=== PATIENT | female | born 1935 | race Caucasian/White ===

== ENCOUNTER 2022-06-01 20:15 | Inpatient (IN) | payer OTHER ==
[~2022-06-01] VITALS: Ht 162.6 cm; Wt 73.5 kg
[2022-06-01 20:31] VITALS: BP 108/67
--- NOTE | 2022-06-01 20:32 | NUR ---
PT BIBA BLS ER BED 12
--- NOTE | 2022-06-01 20:40 | NUR ---
BIBA FROM [facility] WITH C/O NOT EATING IN 3 DAYS DUE TO PAIN IN MOUTH. PT WAS SUPPOSED TO HAVE A BIOPSY DONE AT [facility] BUT HOSPITAL IS WAITING ON SPECIALIST. TIANAU NOTED TO HAVE WHITE SPOTS AND SMALL LACERATIONS. PT KEEPS MOUTH OPEN AND MOANS OCCASIONALLY PMH: DEMENTIA, CHF, COPD, CKD, DM, RESPIRATORY FAILURE
[2022-06-01] MEDS ORDERED: KETOROLAC 15 MG/ML VIAL IVP ONE (23:40)
[2022-06-01] MEDS ORDERED: NACL 0.9% 1,000 ML IV ONE (23:40)
[2022-06-02 00:41] LABS: BASOPHILS % (AUTO) 0.3 % (0.0-2.0); EOSINOPHILS % (AUTO) 0.1 % (0.0-4.0); HEMATOCRIT 44.8 % (36-48); HEMOGLOBIN 14.5 g/dL (12.0-16.0); LYMPHOCYTES # (AUTO) 1.2 K/uL (2.5-16.5); LYMPHOCYTES % (AUTO) 10.4 % (20.5-51.1); MEAN CORPUSCULAR HEMOGLOBIN 29 pg (27-31); MEAN CORPUSCULAR HGB CONC 32 g/dL (33-37); MEAN CORPUSCULAR VOLUME 88.5 fL (80-94); MONOCYTES # (AUTO) 0.6 K/uL (0.8-1.0); MONOCYTES % (AUTO) 5.7 % (1.7-9.3); NEUTROPHILS # (AUTO) 9.4 K/uL (1.8-7.7); NEUTROPHILS % (AUTO) 83.5 % (42.2-75.2); PLATELET COUNT (AUTO) 126 K/uL (140-450); RED BLOOD CELL COUNT(AUTO) 5.06 MIL/uL (4.20-5.40); RED CELL DISTRIBUTION WIDTH 18.4 % (11.6-13.7); WHITE BLOOD COUNT (AUTO) 11.2 K/uL (4.8-10.8)
[2022-06-02 01:14] LABS: ALBUMIN 3.6 g/dL (3.4-5.0); ANION GAP 13.5 (8-16); ASPARTATE AMINOTRANSFERASE 19 U/L (15-37); CHLORIDE 105 mmol/L (98-107); CREATININE 1.4 mg/dL (0.6-1.3); GLUCOSE 114 mg/dL (74-106); SODIUM SERUM 150 mmol/L (136-145); TOTAL BILIRUBIN 0.8 mg/dL (0.0-1.0); UREA NITROGEN, BLOOD 27 mg/dL (7-18)
[2022-06-02 01:19] LABS: POTASSIUM 2.5 mmol/L (3.5-5.1)
[2022-06-02] MEDS ORDERED: POTASSIUM CHL 40 MEQ/ D5-1/2NS 1,000 ML IV ONE (01:20)
--- NOTE | 2022-06-02 02:08 | NUR ---
DOLORES WALKED TO LAB
[2022-06-02] MEDS ORDERED: MORPHINE SULFATE 4 MG/ML SYR IVP ONE (03:55)
[2022-06-02] MEDS ORDERED: ONDANSETRON 4 MG/2 ML VIAL IVP ONE (03:55)
[2022-06-02] MEDS ORDERED: MORPHINE SULFATE 4 MG/ML SYR ONE (03:56)
--- NOTE | 2022-06-02 04:44 | NUR ---
IS MOANING AND CALLING OUT "HELP ME". MEDICATED FOR PAIN ORDERED
--- NOTE | 2022-06-02 06:00 | NUR ---
POSITIONED FOR COMFORT
[2022-06-02] MEDS ORDERED: ACETAMINOPHEN 325 MG TAB PO PRN (08:35)
[2022-06-02] MEDS ORDERED: POTASSIUM CHLORIDE 10 MEQ TABER PO PRN (08:35)
[2022-06-02] MEDS ORDERED: guaiFENesin DM 200/20 MG-10 ML 10 ML UDC PO PRN (08:35)
[2022-06-02] MEDS ORDERED: DOCUSATE SODIUM 100 MG GELCAP PO PRN (08:35)
[2022-06-02] MEDS ORDERED: ONDANSETRON 4 MG/2 ML VIAL IM/IVP PRN (08:35)
[2022-06-02 09:02] LABS: BASOPHILS % (AUTO) 0.5 % (0.0-2.0); EOSINOPHILS % (AUTO) 0.2 % (0.0-4.0); HEMATOCRIT 44.4 % (36-48); HEMOGLOBIN 14.5 g/dL (12.0-16.0); LYMPHOCYTES # (AUTO) 1.1 K/uL (2.5-16.5); LYMPHOCYTES % (AUTO) 12.1 % (20.5-51.1); MEAN CORPUSCULAR HEMOGLOBIN 29 pg (27-31); MEAN CORPUSCULAR HGB CONC 33 g/dL (33-37); MEAN CORPUSCULAR VOLUME 88.4 fL (80-94); MONOCYTES # (AUTO) 0.5 K/uL (0.8-1.0); MONOCYTES % (AUTO) 5.5 % (1.7-9.3); NEUTROPHILS # (AUTO) 7.2 K/uL (1.8-7.7); NEUTROPHILS % (AUTO) 81.7 % (42.2-75.2); PLATELET COUNT (AUTO) 113 K/uL (140-450); RED BLOOD CELL COUNT(AUTO) 5.03 MIL/uL (4.20-5.40); RED CELL DISTRIBUTION WIDTH 17.9 % (11.6-13.7); WHITE BLOOD COUNT (AUTO) 8.8 K/uL (4.8-10.8)
--- NOTE | 2022-06-02 09:02 | NUR ---
XRAY AT BEDSIDE. ATTEMPTED TO FEED PATIENT , HAVING DIFFCULTY WITH CHEWING.
[2022-06-02 09:06] LABS: CARBON DIOXIDE 35.9 mmol/L (21-32); CHLORIDE 106 mmol/L (98-107); CREATININE 1.4 mg/dL (0.6-1.3); GLUCOSE 126 mg/dL (74-106); SODIUM SERUM 136 mmol/L (136-145); UREA NITROGEN, BLOOD 27 mg/dL (7-18)
[2022-06-02 09:12] LABS: POTASSIUM 2.3 mmol/L (3.5-5.1)
--- NOTE | 2022-06-02 09:17 | NUR ---
86YR OLD FEMALE C/O MOUTH PAIN. PT IS FROM [place]. HX OF TONGUE CA. PT IS INCONT. PT A&OX1. 22G R AC. MOUTH HAS DRY OLD BLEED . SWELLING TO THE TONGUE. PT IS UNABLE TO CHEW ANY FOOD. [facility] SOFT DIET HAS BEEN ORDER. NO RESP DISTRESS NOTED. PT ON BEDSIDE MONITOR. HOB ELEVATED. BED AT LOWEST POSITION. SIDE RAILS UP X2. UNKNOWN OF ALLERGIES POOR HISTORIAN HX OF TONGUE CA
[2022-06-02 09:22] LABS: PROTHROMBIN TIME 12.1 secs (10.8-13.4)
[2022-06-02 09:26] LABS: CHOL/HDL RATIO 3.9 (1-4.5); FREE T4 (FREE THYROXINE) 1.16 ng/dL (0.76-1.46); MAGNESIUM 2.4 mg/dL (1.8-2.4); PHOSPHORUS 1.9 mg/dL (2.5-4.9); THYROID STIMULATING HORMONE 4.12 uIU/mL (0.34-3.74)
--- NOTE | 2022-06-02 09:29 | NUR ---
K+ OF 2.3. DR CULP NOTIFED
--- NOTE | 2022-06-02 09:30 | NUR ---
NEW IV CATH PLACED IN L AC 20
[2022-06-02] MEDS: PANTOPRAZOLE 40 MG TABEC PO SCH (09:55)
--- NOTE | 2022-06-02 10:00 | NUR ---
DR CULP NOTIFED OF K+ 2.3. GAVE A ORDER K RIDER 80meq
--- NOTE | 2022-06-02 10:04 | NUR ---
PATIENT HAS BEEN SCREENED AND CATEGORIZED HIGH NUTRITION RISK. PATIENT WILL BE SEEN WITHIN 1-2 DAYS OF ADMISSION. / UBALDO MERA RD
--- NOTE | 2022-06-02 10:50 | NUR ---
RESP EVEN AND UNLABORED. PT RESTING IN BED. H0B ELEVATED. PENDING BED AVAIL /STATUS. NO CHANGE IN PATIENTS CONDITION
[2022-06-02] MEDS ORDERED: POTASSIUM CHLORIDE 40 MEQ, LIDOCAINE MPF 1% 25 MG in NACL 0.9% 250 ML IV SCH ×2 (11:00→16:00)
[2022-06-02] MEDS: DEXT 5% /NACL 0.9% 1,000 ML IV SCH ×3 (11:13→22:32)
--- NOTE | 2022-06-02 11:57 | NUR ---
[facility] SOFT DIET CHANGED TO PURREED THIN LIQUIDS PER DR CULP
--- NOTE | 2022-06-02 13:23 | NUR ---
RECEIVE ENDORSEMENT FROM ER NURSE THAT PATIENT COME FROM [facility] FOR WEAKNESS, MOUTH PAIN D/T HX OF TONGUE CANCER. PATIENT HAS REFUSE EATING IN THE PAST FEW DAYS. CURRENT DIAGNOSIS IS HYPOKALEMIA, DEHYDRATION W/ HX OF HTN, DM II. PATIENT IS FULL CODE W/ NKA, BED REST. ALERT X 1, ON ROOM AIR, PUREE DIET; ON D5 1/2 NS 40KCL INFUSING AT 100 AND 40KCL @68ML/HR VIA L. AC 20G. R. FOREARM 22G SALINE LOCK. WILL CONTINUE TO MONITOR.
[2022-06-02 16:00] VITALS: BP 121/66
--- NOTE | 2022-06-02 19:54 | NUR ---
ENDORSE PATIENT TO PM SHIFT NURSE THAT PATIENT REST IN BED; PIV D5NS INFUSING AT 120ML/HR, K RIDER @68ML/HR VIA LAC. R.FOREARM 22 SALINE LOCK.
[2022-06-02 20:00] VITALS: BP 130/79
[2022-06-02 21:26] LABS: ANION GAP 8.7 (8-16); CARBON DIOXIDE 30.7 mmol/L (21-32); CHLORIDE 112 mmol/L (98-107); CREATININE 1.3 mg/dL (0.6-1.3); GLUCOSE 162 mg/dL (74-106); POTASSIUM 3.4 mmol/L (3.5-5.1); SODIUM SERUM 148 mmol/L (136-145); UREA NITROGEN, BLOOD 24 mg/dL (7-18)
[2022-06-02 21:42] LABS: MAGNESIUM 2.3 mg/dL (1.8-2.4); PHOSPHORUS 1.4 mg/dL (2.5-4.9)
[2022-06-02 23:21] LABS: APPEARANCE,URINE CLEAR (CLEAR); BILIRUBIN,URINE 1+ (NEGATIVE); BLOOD, URINE NEGATIVE (NEGATIVE); COLOR,URINE YELLOW (YELLOW); LEUKOCYTE ESTERASE ,URINE NEGATIVE (NEGATIVE); NITRITE, URINE NEGATIVE (NEGATIVE); UGLUCOSE NEGATIVE (NEGATIVE)
[2022-06-03] VITALS: BP 145/81
[2022-06-03] MEDS: ZOLPIDEM 5 MG TAB PO PRN (03:18)
[2022-06-03 04:00] VITALS: BP 137/84
--- NOTE | 2022-06-03 05:19 | NUR ---
PT GOT SUPER AGITATED AND CONFUSED STARTED SCREAMING AND TRYING TO GET OUT OF BED AND LEAVE. PT STATED " SHE WANTED TO GO TO [place],". KEVIN THE DTP OPERATOR AND I TRIED CALMING HER DOWN BUT SHE WAS YELLING AT US SAYING : " GO AWAY." SHE ALSO WAS TRYING TO HIT US AND SPITTING AT US. WE HAD TO CALL SECURITY AND PT FINALLY WAS ABLE TO CALM DOWN A LITTLE. WILL CONTINUE TO MONITOR PATIENT.
[2022-06-03] MEDS: DEXT 5% /NACL 0.9% 1,000 ML IV SCH (06:20)
[2022-06-03 07:07] LABS: BASOPHILS % (AUTO) 0.3 % (0.0-2.0); EOSINOPHILS % (AUTO) 0.4 % (0.0-4.0); HEMATOCRIT 41.5 % (36-48); HEMOGLOBIN 13.6 g/dL (12.0-16.0); LYMPHOCYTES # (AUTO) 1.2 K/uL (2.5-16.5); LYMPHOCYTES % (AUTO) 12.8 % (20.5-51.1); MEAN CORPUSCULAR HEMOGLOBIN 29 pg (27-31); MEAN CORPUSCULAR HGB CONC 33 g/dL (33-37); MEAN CORPUSCULAR VOLUME 87.6 fL (80-94); MONOCYTES # (AUTO) 0.5 K/uL (0.8-1.0); MONOCYTES % (AUTO) 5.8 % (1.7-9.3); NEUTROPHILS # (AUTO) 7.5 K/uL (1.8-7.7); NEUTROPHILS % (AUTO) 80.7 % (42.2-75.2); PLATELET COUNT (AUTO) 114 K/uL (140-450); RED BLOOD CELL COUNT(AUTO) 4.74 MIL/uL (4.20-5.40); RED CELL DISTRIBUTION WIDTH 18.5 % (11.6-13.7); WHITE BLOOD COUNT (AUTO) 9.3 K/uL (4.8-10.8)
[2022-06-03 07:08] LABS: T4 (THYROXINE) 7.8 ug/dL (4.5-12.0)
[2022-06-03] MEDS: PANTOPRAZOLE 40 MG TABEC PO SCH (08:29)
[2022-06-03 12:00] VITALS: BP 126/60
[2022-06-03] MEDS: HYDROcodone/APAP 7.5/325 MG 1 TAB PO PRN ×2 (12:02→20:34)
[2022-06-03 12:43] LABS: CARBON DIOXIDE 27.5 mmol/L (21-32); CHLORIDE 114 mmol/L (98-107); CREATININE 1.3 mg/dL (0.6-1.3); GLUCOSE 164 mg/dL (74-106); POTASSIUM 3.5 mmol/L (3.5-5.1); SODIUM SERUM 152 mmol/L (136-145); UREA NITROGEN, BLOOD 24 mg/dL (7-18)
[2022-06-03] MEDS ORDERED: DEXT 5% / NACL 0.45% 1,000 ML IV SCH (13:10)
--- NOTE | 2022-06-03 14:36 | NUR ---
06/03/22 RD INITIAL ASSESSMENT COMPLETED PLEASE REFER TO NUTRITION ASSESSMENT UNDER CARE ACTIVITY FOR ESTIMATED NUTRITIONAL NEEDS. 1. CONTINUE REGULAR DIET WITH TEXTURE MODIFICATION PER SLT RECOMMENDATIONS -PT REQUIRES FEEDING ASSISTANCE 2. RECOMMEND ENSURE TID FOR NUTRITION SUPPORT 3. RD TO FOLLOW-UP 2-3 DAYS, HIGH RISK KAVITHA MERA RD Addendum: 06/03/22 at [address] RECEIVED SWALLOW EVAL RESULT, PT NPO WITH ALTERNATIVE MEANS OF NUTRITION/HYDRATION PER SLT RECOMMENDATIONS. IF PT REQUIRES TUBE FEEDING, RECOMMEND JEVITY 1.2 @ 50 ML/HR WITH PROSOURCE TID, FWF 200ML Q6H TO MEET PT ESTIMATED NUTRIENT NEEDS. START TF AT 10ML/HR AND INCREASE BY 10ML Q4H TOLERATED. RD WILL CONTINUE TO MONITOR.
[2022-06-03] MEDS ORDERED: SODIUM PHOS / POTASSIUM PHOS 1 PKT PDR PO SCH (15:00)
[2022-06-03 16:00] VITALS: BP 136/77
[2022-06-03] MEDS: POTASSIUM CHL 40 MEQ/ D5-1/2NS 1,000 ML IV SCH (17:12)
[2022-06-03 20:00] VITALS: BP 114/78
--- NOTE | 2022-06-03 21:22 | NUR ---
CALLED DR. ROBBI MCFARLAND BECAUSE PATIENT WAS YELLING THAT SHE IS IN PAIN, AND I TRIED TO GIVE HER NORCO PRN PO CRUSHED IN APPLE SAUCE BUT PT SPIT IT OUT AND PT GETS VERY AGITATED AND UPSET WHEN WE TRY TO CLEAN PT MOUTH OR TRY TO SUCTION HER TONGUE IS SO SWOLLEN/BLEEDING , & DON'T WANT TO CAUSE MORE TRAUMA BY SUCTIONING, SO I TOLD DR. CULP THAT I AM USING GAUZE TO PLACE IN HER MOUTH TO PREVENT HER FROM ASPIRATING AND BLEEDING, BUT SHE IS STILL IN A LOT OF PAIN, SO HE ORDERED 1MG MORPHINE IVP Q6H PRN FOR PAIN RELIEF. WILL CONTINUE TO MONITOR PATIENT.
[2022-06-03] MEDS: MORPHINE SULFATE 2 MG/ML SYR IVP PRN (23:05)
[2022-06-04] VITALS: BP 135/79
[2022-06-04] MEDS: POTASSIUM CHL 40 MEQ/ D5-1/2NS 1,000 ML IV SCH ×3 (03:55→22:11)
[2022-06-04 04:40] VITALS: BP 125/66
[2022-06-04] MEDS: MORPHINE SULFATE 2 MG/ML SYR IVP PRN ×2 (05:26→16:39)
[2022-06-04 07:30] LABS: BASOPHILS % (AUTO) 0.4 % (0.0-2.0); EOSINOPHILS # (AUTO) 0.1 K/uL (0-0.4); EOSINOPHILS % (AUTO) 0.6 % (0.0-4.0); HEMATOCRIT 43.9 % (36-48); HEMOGLOBIN 14.4 g/dL (12.0-16.0); LYMPHOCYTES # (AUTO) 1.4 K/uL (2.5-16.5); LYMPHOCYTES % (AUTO) 15.7 % (20.5-51.1); MEAN CORPUSCULAR HEMOGLOBIN 29 pg (27-31); MEAN CORPUSCULAR HGB CONC 33 g/dL (33-37); MEAN CORPUSCULAR VOLUME 88.9 fL (80-94); MONOCYTES # (AUTO) 0.5 K/uL (0.8-1.0); MONOCYTES % (AUTO) 5.8 % (1.7-9.3); NEUTROPHILS % (AUTO) 77.5 % (42.2-75.2); PLATELET COUNT (AUTO) 116 K/uL (140-450); RED BLOOD CELL COUNT(AUTO) 4.94 MIL/uL (4.20-5.40); RED CELL DISTRIBUTION WIDTH 18.7 % (11.6-13.7); WHITE BLOOD COUNT (AUTO) 9.1 K/uL (4.8-10.8)
--- NOTE | 2022-06-04 07:30 | NUR ---
RECEIVED REPORT FROM SILO ERECTOR RN
[2022-06-04 08:00] VITALS: BP 112/71
[2022-06-04 08:25] LABS: CARBON DIOXIDE 29.2 mmol/L (21-32); CHLORIDE 110 mmol/L (98-107); CREATININE 1.4 mg/dL (0.6-1.3); GLUCOSE 122 mg/dL (74-106); POTASSIUM 3.2 mmol/L (3.5-5.1); SODIUM SERUM 151 mmol/L (136-145); UREA NITROGEN, BLOOD 17 mg/dL (7-18)
[2022-06-04] MEDS: PANTOPRAZOLE 40 MG INJ VIAL IVP SCH (08:35)
--- NOTE | 2022-06-04 09:00 | NUR ---
DUE MEDS GIVEN
[2022-06-04] MEDS ORDERED: DEXTROSE 5% 1,000 ML IV SCH (10:35)
--- NOTE | 2022-06-04 11:29 | NUR ---
PT. WITH LOW NADJA SCALE AT MODERATE TO HIGH RISK, CONTINUE TO FOLLOW PRESSURE INJURY PREVENTION INTERVENTIONS.IAD TO PERINEUM,SKIN RED,MOIST,INTACT. -SALVATORE CARE Q2H AND APPLY Z GUARD TO PERINEUM BID AND PRN IF SOILING -POSITIONING: TURN AND REPOSITION PATIENT Q 2H OR SOONER USE PILLOWS TO KEEP BONY PROMINENCES FROM DIRECT CONTACT WITH SURFACES USE REPOSITIONING WEDGES TO PROVIDE 30-DEGREE ANGLE FOR SIDE LYING POSITIONS OFFLOADING OR FOAM DRESSING TO ALL TUBING TO PREVENT MEDICAL DEVICES RELATED PRESSURE INJURY -RE-EVALUATING AND MANAGING INCONTINENCE MONITOR SKIN CONDITION DURING POSITION CHANGE DO NOT MASSAGE REDNESS, BONY PROMINENCES FREQUENT SALVATORE-CARE AND PROVIDE BARRIER CREAMS PRN IF SOILING MOISTURE CONTROL BY OFFER BED CROUCH/URINAL /ABSORBENT PAD TO WICK AND HOLD MOISTURE KEEP SKIN DRY AND PROTECT FROM FRICTION -MANAGE FRICTION/SHEAR/MOBILITY KEEP HOB AT THE LOWEST LEVEL OF ELEVATION NO MORE THAN 30 DEGREE UNLESS OTHERWISE CONTRAINDICATED USE LIFT SHEET OR TRANSFER DEVICE TO MOVE PATIENT AND PREVENT LATERAL SHEER. PROTECT HEELS, ELBOWS BONY PROMINENCES WITH SKIN BERRIES OR FOAM DRESSING IF EXPOSED TO FRICTION OFFLOAD BILATERAL HEELS BY PLACING PILLOWS UNDER CALVES AT ALL TIMES, UNLESS OTHERWISE CONTRAINDICATED -PRESSURE REDISTRIBUTION SURFACE THERAPY XIOMY ISOFLEX MATTRESS -NUTRITION: PLEASE FOLLOW RD RECOMMENDATIONS AND OFFER NUTRITION SUPPLEMENTS IF ORDERED. PLEASE CONTACT WOUND CARE NURSE FOR ANY QUESTION AND CHANGE OF WOUND CONDITION
[2022-06-04 12:00] VITALS: BP 122/74
[2022-06-04] MEDS ORDERED: POTASSIUM CHLORIDE 40 MEQ, LIDOCAINE MPF 1% 25 MG in NACL 0.9% 250 ML IV SCH (12:00)
--- NOTE | 2022-06-04 12:00 | NUR ---
INSERTED IV TO RAC 20G X 1 ATTEMPT, PATENT AND INTACT
[2022-06-04] MEDS: Z-GUARD PASTE TP SCH (12:44)
--- NOTE | 2022-06-04 13:31 | NUR ---
DC PLANNING: PATIENT HAS AN ORDER TO TRANSFER TO HIGHER LEVEL OF CARE FOR HEAD/NECK SURGEON ORAL MAXILLARY SURGERY. PATIENT NEEDS TERRITORY CARE. FAXED TO [facility] AND [facility] CM TO FOLLOW Addendum: 06/04/22 at 1531 by Caitie Santoyo RN DC PLANNING: RECEIVED A CALL FROM [facility] AND [facility] STATED THEY ARE THEIR CAPACITY AND NOT TAKING ANY PATIENT AT THIS TIME. CM TO FOLLOW
[2022-06-04 16:00] VITALS: BP 71/74
--- NOTE | 2022-06-04 19:10 | NUR ---
RECEIVED REPORT AM RN. PATIENT IS ASLEEP. NO S/SX OF PAIN NOR DISCOMFORT. NO ACUTE RESPIRATORY DISTRESS NOTED. SKIN WARM AND DRY TO TOUCH. IVF INFUSING WELL ORDERED. BED IN THE LOWEST AND LOCKED POSITION FOR SAFETY, CALL LIGHT IN REACH.
[2022-06-04 20:00] VITALS: BP 128/65
--- NOTE | 2022-06-04 20:30 | NUR ---
PATIENT REFUSED ORAL CARE, CLEANED OUTSIDE OF MOUTH NOTED SOME BLOODY FLUID.
--- NOTE | 2022-06-04 21:30 | NUR ---
INCONTINENT OF URINE, PERINEAL CARE RENDERED. PULLED UP AND POSITIONED FOR COMFORT. HEAD OF THE BED ELEVATED. CALL LIGHT IN REACH.
[2022-06-05] VITALS: BP 123/61
[2022-06-05] MEDS: Z-GUARD PASTE TP SCH ×2 (00:21→13:00)
--- NOTE | 2022-06-05 00:30 | NUR ---
PATIENT ASLEEP. BREATHING EVEN AND UNLABORED. CALL LIGHT WITHIN REACH,
--- NOTE | 2022-06-05 02:49 | NUR ---
PATIENT SPIT OUT BLOOD CLOTS, REFUSED ORAL CARE. CLEANED PATIENT, MADE COMFORTABLE IN BED. CALL LIGHT WITHIN REACH.
[2022-06-05] MEDS: MORPHINE SULFATE 2 MG/ML SYR IVP PRN ×3 (03:44→13:32)
[2022-06-05 04:00] VITALS: BP 134/71
--- NOTE | 2022-06-05 05:00 | NUR ---
WIPED OUTER PART OF THE MOUTH, REFUSED ORAL CARE. PATIENT SCREAMING AND FIGHTING WHEN BEING TOUCHED.
--- NOTE | 2022-06-05 05:49 | NUR ---
PATIENT REFUSED AM LABS TO BE DRAWN, PUMP AND BLOWER OPERATOR MADE AWARE. WILL TRY AGAIN LATER.
--- NOTE | 2022-06-05 06:25 | NUR ---
PATIENT ASLEEP AT THIS TIME. ALL NEEDS ATTENDED TO. NO DISTRESS NOTED. SAFETY PRECAUTIONS MAINTAINED DURING THE SHIFT, CALL LIGHT REMAINED WITHIN REACH,
[2022-06-05] MEDS ORDERED: POTASSIUM CHLORIDE IV SCH (06:30)
[2022-06-05] MEDS ORDERED: DEXTROSE 5% IV SCH (06:30)
--- NOTE | 2022-06-05 07:25 | NUR ---
RECEIVED REPORT FROM UMBRELLA SUPERVISOR, LM RN, FOR CONTINUITY OF CARE. PT CONFUSED, PERRLA, ABLE TO TRACK. CAPILLARY REFILL <3 SECONDS. IV TO RAC 20G INFUSING 0.30% KCL/D5 1/2 NS AT 75 ML/HR AND LAC 20G, SALINE LOCK. ROOM AIR. BOWEL SOUNDS ACTIVE. INCONTINENT OF URINE. CLEANED, CHANGED AND REPOSITIONED WITH STUDENT RN. SKIN BREAKDOWN TO BILATERAL GROIN, AND MOUTH D/T PT BITING TONGUE, OTHERWISE SKIN INTACT. STANDARD PRECAUTIONS. BED IN LOWEST POSITION, CALL LIGHT W/IN REACH.
[2022-06-05 08:00] VITALS: BP 133/74
[2022-06-05] MEDS: PANTOPRAZOLE 40 MG INJ VIAL IVP SCH (08:09)
--- NOTE | 2022-06-05 08:20 | NUR ---
PT REFUSED ALL MEDICATIONS. STATED PAIN IN MOUTH BUT DOES NOT WANT ANY PAIN MEDICATION.
--- NOTE | 2022-06-05 08:27 | NUR ---
ENDORSED REPORT TO ROSSI CHESTER FOR CONTINUITY OF CARE.
--- NOTE | 2022-06-05 08:28 | NUR ---
RECEIVED REPORT FROM HENRIK FOSTER. PT AWAKE, IN BED. RESPIRATIONS EVEN AND UNLABORED ON RA. NO DISTRESS NOTED. IV SITES ON RAC 20G, INFUSING D5 1/2 NS W/ POTASSIUM AND LAC 20G SL. CALL LIGHT WITHIN REACH. SAFETY PRECAUTIONS IN PLACE. WILL CONTINUE TO MONITOR.
--- NOTE | 2022-06-05 08:45 | NUR ---
RECEIVED REPORT FROM EAMON RICHEY FOR CONTINUITY OF CARE. PT IS A/OX1 AND HAS DIFFICULTY SPEAKING. MOUTH HAS DARK RED BLOOD AND SALIVA. PT REFUSED ASSESSMENT VIA ANY PHYSICAL TOUCH OR ORAL CARE. IV IN RIGHT FOREARM UPON INSPECTION IS PATENT AND RUNNING D5 1/2NS WITH KCL 40MEQ AT 75ML/HR. NO VISIBLE SIGNS OF EDEMA, PT PULLED ARM AWAY AT ANY ATTEMPT OF CLOSER INSPECTION. DISCOLORATION NOTED IN LEFT LOWER EXTREMITY. PT IN STABLE CONDITION.
--- NOTE | 2022-06-05 08:45 | NUR ---
ENDORSED PT TO HENRIK MONTES DE OCA. PT IS STABLE.
[2022-06-05] MEDS ORDERED: POTASSIUM CHLORIDE 20 MEQ in DEXTROSE 5% 1,000 ML IV SCH (10:25)
[2022-06-05] MEDS: POTASSIUM CHL 20 MEQ / DEXT 5% 1,000 ML IV SCH (11:10)
[2022-06-05 12:00] VITALS: BP 148/74
--- NOTE | 2022-06-05 13:35 | NUR ---
GAVE PT IV MORPHINE FOR PAIN IN MOUTH AND STOMACH.
--- NOTE | 2022-06-05 13:41 | NUR ---
DISCUSSED PROCEDURE WITH PT, PT BEGAN SCREAMING "NO I DON'T WANT THAT" "I JUST WANT TO GO HOME". DR. TORRES DISCUSSED AND EDUCATED PT ABOUT THE EGD WITH PEG TUBE NECESSITY, PT STILL REFUSED.
[2022-06-05 16:00] VITALS: BP 131/74
--- NOTE | 2022-06-05 19:20 | NUR ---
ENDORSED PT TO NIGHTSCAFT NURSE ADRIANA FOR CONTINUITY OF CARE. PT IN STABLE CONDITION.
[2022-06-05 20:00] VITALS: BP 125/75
[2022-06-06] VITALS: BP 127/68
[2022-06-06] MEDS: Z-GUARD PASTE TP SCH ×2 (00:27→13:07)
[2022-06-06] MEDS: POTASSIUM CHL 20 MEQ / DEXT 5% 1,000 ML IV SCH ×2 (00:27→01:42)
[2022-06-06 04:00] VITALS: BP 124/72
[2022-06-06 08:00] VITALS: BP 144/98
--- NOTE | 2022-06-06 08:03 | NUR ---
RECEIVE ENDORSEMENT FROM PM SHIFT NURSE THAT PATIENT REST IN BED. PIV RAC 20 D5 20MEQ KCL INFUSING AT 70ML/HR. PATIENT AWAKE. WILL CONTINUE TO MONITOR
[2022-06-06] MEDS: PANTOPRAZOLE 40 MG INJ VIAL IVP SCH (08:27)
[2022-06-06 12:00] VITALS: BP 135/77
[2022-06-06 14:41] LABS: BASOPHILS % (AUTO) 0.2 % (0.0-2.0); EOSINOPHILS # (AUTO) 0.1 K/uL (0-0.4); EOSINOPHILS % (AUTO) 1.2 % (0.0-4.0); HEMATOCRIT 39.7 % (36-48); HEMOGLOBIN 12.8 g/dL (12.0-16.0); LYMPHOCYTES # (AUTO) 0.8 K/uL (2.5-16.5); LYMPHOCYTES % (AUTO) 9.3 % (20.5-51.1); MEAN CORPUSCULAR HEMOGLOBIN 29 pg (27-31); MEAN CORPUSCULAR HGB CONC 32 g/dL (33-37); MEAN CORPUSCULAR VOLUME 88.6 fL (80-94); MONOCYTES # (AUTO) 0.6 K/uL (0.8-1.0); MONOCYTES % (AUTO) 6.6 % (1.7-9.3); NEUTROPHILS # (AUTO) 7.3 K/uL (1.8-7.7); NEUTROPHILS % (AUTO) 82.7 % (42.2-75.2); PLATELET COUNT (AUTO) 77 K/uL (140-450); RED BLOOD CELL COUNT(AUTO) 4.48 MIL/uL (4.20-5.40); RED CELL DISTRIBUTION WIDTH 18.6 % (11.6-13.7); WHITE BLOOD COUNT (AUTO) 8.9 K/uL (4.8-10.8)
[2022-06-06 14:58] LABS: ALBUMIN 2.8 g/dL (3.4-5.0); ANION GAP 10.4 (8-16); ASPARTATE AMINOTRANSFERASE 27 U/L (15-37); CARBON DIOXIDE 27.5 mmol/L (21-32); CHLORIDE 106 mmol/L (98-107); CREATININE 1.2 mg/dL (0.6-1.3); GLUCOSE 152 mg/dL (74-106); MAGNESIUM 1.8 mg/dL (1.8-2.4); PHOSPHORUS 1.7 mg/dL (2.5-4.9); SODIUM SERUM 141 mmol/L (136-145); TOTAL BILIRUBIN 1.5 mg/dL (0.0-1.0); UREA NITROGEN, BLOOD 13 mg/dL (7-18)
[2022-06-06 15:10] LABS: POTASSIUM 2.9 mmol/L (3.5-5.1)
[2022-06-06] MEDS ORDERED: KCL 20 MEQ/WATER INJ PREMIX 200 ML IV SCH (15:20)
[2022-06-06] MEDS ORDERED: KCL 20 MEQ/WATER INJ PREMIX 200 ML IV ONE (15:25)
[2022-06-06 16:00] VITALS: BP 120/67
[2022-06-06 18:36] LABS: ANION GAP 12.3 (8-16); CARBON DIOXIDE 25.4 mmol/L (21-32); CHLORIDE 107 mmol/L (98-107); CREATININE 1.2 mg/dL (0.6-1.3); GLUCOSE 131 mg/dL (74-106); POTASSIUM 3.7 mmol/L (3.5-5.1); SODIUM SERUM 141 mmol/L (136-145); UREA NITROGEN, BLOOD 13 mg/dL (7-18)
--- NOTE | 2022-06-06 18:45 | NUR ---
PM LAB COMP RESULT THAT POTASSIUM 2.9, REPORT RESULT TO DR. RODRÍGUEZ AND RECEIVE ONE TIME ORDER Ravi MIKE 40MEQ. AT 1830, RE-DRAW BMP, PATIENT'S POTASSIUM 3.7. WILL CONTINUE TO MONITOR.
--- NOTE | 2022-06-06 18:54 | NUR ---
RECEIVE ORDER TO HAVE CT ABDOMINAL W/ CONTRAST FROM DR. TORRES & LAPAROSCOPIC POSSIBLE OPEN CHOLECYSTECTOMY + IOCHLANGIOGRAM PROCEDURE ORDER FROM DR. HERRON; NURSE OBTAIN CONSENTS FROM PATIENT. PATIENT IS AWARE THAT HE NEED TO BE NPO FROM MIDNIGHT FOR TOMORROW SURGERY. WILL CONTINUE TO MONITOR Addendum: 06/06/22 at 1951 by Clementine Ho RN WRONG PATIENT
--- NOTE | 2022-06-06 19:52 | NUR ---
ENDORSE PATIENT TO PM SHIFT NURSE THAT PATIENT IS IN BED, REFUSING BED CHANGE. FIGHTING TO GET OUT BED. IV K RIDER 40MEQ ALMOST COMPLETE.
--- NOTE | 2022-06-06 19:53 | NUR ---
RECD RESTING IN BED WITH AGITATION, A/OX1. RESPIRATION EVEN AND UNLABORED. CLEANSED, DIAPER CHANGED AND MADE COMFORTABLE IN BED. SAFETY MEASURES ENFORCED. BED IN THE LOWEST POSITION. SIDE RAILS UP. NO APPEARANCE OF PAIN OR DISCOMFORT NOTED, FLACC -0.
[2022-06-06 20:00] VITALS: BP 128/67
--- NOTE | 2022-06-06 20:00 | NUR ---
TRYING TO GET OUT OF BED, AGITATED. WILL INFORM .
[2022-06-06] MEDS ORDERED: HALOPERIDOL IM 5 MG/ML VIAL IM PRN (20:15)
[2022-06-06] MEDS: DEXT 5% / NACL 0.45% 1,000 ML IV SCH ×2 (20:15→23:54)
--- NOTE | 2022-06-06 20:15 | NUR ---
IV INFILTRATED, WILL INSERT NEW IV LINE.
--- NOTE | 2022-06-06 20:33 | NUR ---
SHOUTING, AGITATED. MEDICATED WITH HALDOL PER MD ORDER.
--- NOTE | 2022-06-06 21:19 | NUR ---
06/06/22 RD FOLLOW UP COMPLETED. PLEASE REFER TO NUTRITION ASSESSMENT UNDER CARE ACTIVITY FOR ESTIMATED NUTRITIONAL NEEDS. 1. WHEN/IF MEDICALLY APPROPRIATE, RECOMMEND REGULAR PUREE DIET OR PER SLT RECOMMENDATIONS -PT REQUIRES FEEDING ASSISTANCE -IF PT NEEDS TUBE FEEDING VIA PEG OR NG AND WHEN/IF MEDICALLY APPROPRIATE, RECOMMEND JEVITY 1.2 WITH A GOAL RATE OF 50 ML/HR -START AT 10 ML AND INCREASE BY 10 ML EVERY 4 HOURS UNTIL GOAL RATE OF 50ML/HR REACHED. -FWF 100ML Q6HR 2. RD TO FOLLOW-UP IN 2-3 DAYS PATIENT IS HIGH RISK. MARIA PRAKASH RD
--- NOTE | 2022-06-06 21:33 | NUR ---
AWAKE IN BED, STILL TRYING TO GET OUT OF BED OCCASIONALLY/
--- NOTE | 2022-06-06 23:50 | NUR ---
NEW IV LINE INSERTED BY CHARGE NURSE MISA AT THE RIGHT FOREARM G22.
[2022-06-07] VITALS (8 sets, daily range): BP systolic 75–151; BP diastolic 50–78
--- NOTE | 2022-06-07 00:32 | NUR ---
COMPLAINT OF PAIN INSIDE THE MOUTH, MEDICATED WITH LIDOCAINE VISCOUS PER MD ORDER.
[2022-06-07] MEDS: ZOLPIDEM 5 MG TAB PO PRN (01:14)
--- NOTE | 2022-06-07 01:14 | NUR ---
UNABLE TO SLEEP, MEDICATED WITH AMBIEN PER MD ORDER.
[2022-06-07] MEDS: Z-GUARD PASTE TP SCH ×2 (01:15→12:40)
--- NOTE | 2022-06-07 02:14 | NUR ---
STILL AWAKE, OCCASIONALLY TRIES TO GET OUT OF BED.
--- NOTE | 2022-06-07 04:00 | NUR ---
SLEEPING COMFORTABLY IN BED, RESPIRATION EVEN AND UNLABORED.
--- NOTE | 2022-06-07 05:00 | NUR ---
CLEANSED AND DIAPER CHANGED BY HEALTH INFORMATION TECH. REPOSITION IN BED FOR COMFORT WITH PILLOWS.
[2022-06-07 06:43] LABS: HEMATOCRIT 38.8 % (36-48); HEMOGLOBIN 12.8 g/dL (12.0-16.0); MEAN CORPUSCULAR HEMOGLOBIN 29 pg (27-31); MEAN CORPUSCULAR HGB CONC 33 g/dL (33-37); MEAN CORPUSCULAR VOLUME 87.4 fL (80-94); RED BLOOD CELL COUNT(AUTO) 4.44 MIL/uL (4.20-5.40); RED CELL DISTRIBUTION WIDTH 18.4 % (11.6-13.7); WHITE BLOOD COUNT (AUTO) 6.4 K/uL (4.8-10.8)
[2022-06-07 06:47] LABS: ANION GAP 13.3 (8-16); CARBON DIOXIDE 25.6 mmol/L (21-32); CHLORIDE 105 mmol/L (98-107); CREATININE 1.2 mg/dL (0.6-1.3); GLUCOSE 132 mg/dL (74-106); PLATELET COUNT (AUTO) 78 K/uL (140-450); SODIUM SERUM 141 mmol/L (136-145); UREA NITROGEN, BLOOD 12 mg/dL (7-18)
--- NOTE | 2022-06-07 06:49 | NUR ---
SLEEPING IN BED, RESPIRATION EVEN AND UNLABORED. OCCASIONALLY MOVING IN BED. CONDITION REMAIN STABLE. WILL ENDORSE TO AM SHIFT NURSE FOR CONTINUITY OF CARE.
[2022-06-07 07:02] LABS: POTASSIUM 2.9 mmol/L (3.5-5.1)
[2022-06-07] MEDS ORDERED: hydrALAZINE 20 MG/ML VIAL IVP PRN (08:05)
[2022-06-07] MEDS ORDERED: POTASSIUM CHL 40 MEQ/ D5-1/2NS 1,000 ML IV SCH (08:05)
--- NOTE | 2022-06-07 08:13 | NUR ---
RECEIVE ENDORSEMENT FRO PM SHIFT NURSE THAT PATIENT HAS NEW IV FLUID ORDER D5 1/2 NS @40ML/HR VIA F FOREARM 22G INFUSING. LAB RESULT POTASSIUM=2.9 AGAIN. PCP INFORMED AND RECEIVE ORDER 60MEQ Ravi MIKE X 1. WILL CONTINUE TO MONITOR
[2022-06-07 08:25] LABS: BASOPHILS % (MANUAL) 0 % (0-2); EOSINOPHILS % (MANUAL) 0 % (0-4); LYMPHOCYTES % (MANUAL) 4 % (20-46); MONOCYTES % (MANUAL) 4 % (5-12)
[2022-06-07 08:27] LABS: BUFFY COAT SMEAR PREP N
--- NOTE | 2022-06-07 09:19 | NUR ---
WOUND CARE NOTE: SKIN ASSESSMENT DONE. PT. SACRALCOCCYX SKIN INTACT, MOIST AND CLEAN. INCONTINENCE ASSOCIATED DERMATITIS SKIN REDNESS TO GROINS AND BUTTOCKS AND SACRALCOCCYX. ECCHYMOSIS TO BILATERAL UPPER EXTREMITIES. ORAL CAVITY CLEAN AND MOIST, NO BLEEDING, TIP OF TONGUE MOIST AND NO BLEEDING.. WILL CONTINUE Z GUARD.
[2022-06-07] MEDS: PANTOPRAZOLE 40 MG INJ VIAL IVP SCH (09:24)
--- NOTE | 2022-06-07 18:46 | NUR ---
CALLED DR. LUTZ REGARDING PT CODED, PER WILL INFORM SON. PT IS TO TRANSFER TO ICU BED 5.
[2022-06-07] MEDS ORDERED: NOREPINEPHRINE 4 MG in DEXTROSE 5% 250 ML IV PRN ×2 (19:10→19:35)
--- NOTE | 2022-06-07 19:25 | NUR ---
ENDORSE PATIENT TO ICU NURSE AFTER BRING PATIENT BACK FROM NON-RESPONSIVE/CODE BLUE (AROUND 1830 FOUND PATIENT NON-RESPONSIVE AND NO PULSE). PATIENT WAS INTUBATED BEFORE SENDING TO ICU. SBP DROP FROM 120S TO 50S. PATIEN ADMIT FOR HYPOKALEMIC W/ MORNING BMP RESULT K=2.9. WILL F/U.
[2022-06-07] MEDS ORDERED: VASOPRESSIN 20 UNITS in NACL 0.9% 250 ML IV PRN (19:35)
[2022-06-07] MEDS ORDERED: EPINEPHrine 1 mg/mL 3 MG in DEXTROSE 5% 250 ML IV PRN (19:35)
[2022-06-07] MEDS ORDERED: VASOPRESSIN 20 UNITS/ML VIAL ONE (19:38)
[2022-06-07] MEDS ORDERED: SODIUM BICARBONATE 8.4% PFS 50 MEQ/50 ML SYR IVP SCH (19:50)
[2022-06-07] MEDS ORDERED: LACTATED RINGERS 1,000 ML IV STA ×2 (19:50→23:00)
--- NOTE | 2022-06-07 19:50 | NUR ---
REPORT GIVEN TO POLE CLIMBER NURSE PAZ.
--- NOTE | 2022-06-07 19:58 | NUR ---
ABG'S CALLED TO DR. LARSEN. UPDATED ON VASOPRESSORS, BP, VENT SETTINGS. ORDERS RECEIVED. NOTIFIED RT. VENTILATOR RATE INCREASED TO 25. 1 LITER BOLUS OF LR WITH 1 AMP BICARB.
[2022-06-07] MEDS ORDERED: SODIUM BICARBONATE 8.4% PFS 50 MEQ/50 ML SYR IVP ONE (20:01)
--- NOTE | 2022-06-07 21:16 | NUR ---
1845 RESPONDED TO CODE BLUE. CPR WAS BEING DONE. INTUBATED PATIENT WITH 7.5 TUBE AT 23LIP. PATIENT HAD BRIGHT RED BLOOD COMING FROM TUBE. PATIENT WAS TRANSPORTED TO ICU BED 5. PLACED ON VENT. AC 18 I:E RATIO 1:2. PINSP 20CM FIO2 100%. PEEP 5CM.. ABG DRAWN AND DR GAVIRIA CALLED.. INCREASED RATE TO [address] VALDEZ
--- NOTE | 2022-06-07 21:22 | NUR ---
2038 WITNESSED PATIENTS HEART RATE DROP TO 40HR. STARTED CPR. CODE BLUE CALLED
--- NOTE | 2022-06-07 21:42 | NUR ---
RECEIVED PT. FROM [facility] AT 1919 STATUS POST CODED. REPORT GIVEN BY HENRIK GALVAN. PT. UNRESPONSIVE, ON ETT A/C PC 100%, R 14, PEEP 5 AND NO TRACED OF O2 SAT. IV FLUID TO RIGHT LOWER FOREARM 22G INFUSING LEVOPHED DRIP AT 20MCG/MIN. BP SYSTOLIC IN THE LOW 80'S AND DIASTOLIC IN THE LOW 35. INCREASED LEVOPHED DRIP TO 30MCG/MIN AT 1929. CALLED TO DR. LUTZ AND DR. LARSEN PT. CURRENT CONDITION AND GAVE NEW ORDER OVER THE PHONE TO START VASOPRESSIN AND IF BP STILL LOW TO START EPINEPHRINE. STARTED VASOPRESSIN AT 0.03 U/MIN. STARTED BUTLER CATHETER 16F WITH URINE OUTPUT LIGHT YELLOW COLOR. NGT STARTED TO RIGHT NARES AND X'RAY TAKEN TO VERIFY PLACEMENT. ABG ALSO TAKEN AND RESULT REPORTED TO AT 1957 BY HENRIK PIKE. REPORTED TOO THE UPDATE OF THE VASOPRESSORS, BP, VENT SETTINGS AND NEW ORDER MADE FOR VENTILATOR TO INCREASE RATE TO 25. IL LR BOLUS WITH 1 AMP NaBICARB. RECEIVED AND CARRIED OUT/GIVEN. 1956 CALLED THE FAMILY, ASKED FOR CONSENT OF PICC LINE AND PICC LINE NURSE ARRIVED RIGHT AWAY AND SETTING UP THE PICC LINE. 2014 LAB CALLED REPORTED PT. HAS RIGHT PNEUMOTHORAX. CALLED DR. LARSEN AT 2034 READ THE RESULT OF THE XR CHEST 1 VIEW. WHILE ON THE PHONE WITH DR. LARSEN, CHARGE NURSE AT 2038 AT THE BEDSIDE AND CALLED FOR A CODE BLUE. PT. NO PULSE AND HR 40 BEATS. ER MD ATTENDED THE CODE. DR. LARSEN ON THE PHONE DURING THE CODE AND ORDERED IF PT. WILL MAKE IT TO CALL THE PRIMARY MD TO SCHEDULE A SURGERY, BECAUSE PT. HAS A FREE AIR IN THE DIAPHRAGM PER DR. LARSEN. PICC LINE NURSE STANDING BY DURING THE CODE. PICC LINE NOT INSERTED YET. WHILE DOING THE CODE, I CALLED THE SON STEPHANIE METZ TO TELL HIM THAT WE ARE CODING HIS MOM AND SON STATED " OKAY, THANK YOU AND HANGED UP THE PHONE. PT. PROVIDED WITH ACLS PROTOCOL, CPR, WITH ER , HEAD MILLER, RN, RT AT THE BEDSIDE. PT. , PRONOUNCED BY ER MD DR. CLEANING AT 2047.
--- NOTE | 2022-06-07 22:15 | NUR ---
I CALLED THE SON AT 2048 AND REPORTED THAT MOM DID NOT MAKE IT. I ASKED THE SON IF THEY HAVE AN ARRANGEMENT FOR MORTUARY AND SON SAID THEY DON'T HAVE. I MENTIONED TO SON STEPHANIE THAT IF THEY WILL HAVE, TO CALL US BACK HERE IN THE HOSPITAL, SINCE WE DON'T HAVE [place]. STEPHANIE, SON SAID YES WE'LL TALK.
--- NOTE | 2022-06-07 22:19 | NUR ---
AT 2058 I CALLED [facility] AND PER [facility] THEY WILL NOT MOVE FORWARD WITH PT. CASE. REFERRAL # [id number]. AT 2110 I CALLED OUTREACH TEAM MEMBERDAGO DOOLEY. NO FURTHER INFORMATION PROVIDED BY OUTREACH TEAM MEMBER. AT [address] LUTZ, NOTIFIED WITH PT. EXPIRATION. AT 2130, I LEFT A MESSAGE TO DR. LARSEN'S OFFICE MATERIAL EXPEDITOR AND LEFT MESSAGE THAT PT. AT 2047.
--- NOTE | 2022-06-07 22:24 | NUR ---
AT 2119 I CALLED THE ADMITTING, REPORTED PT. TIME OF EXPIRATION.
--- NOTE | 2022-06-07 22:41 | NUR ---
I CALLED THE SON STEPHANIE TO GET THE MORTUARY IF HE ALREADY HAS, BUT ONLY [employer]. I LEFT A MESSAGE.
--- NOTE | 2022-06-07 22:45 | NUR ---
I CALLED THE OTHER FAMILY REGISTERED ON [employer], ALLAN ISBELL . ALLAN ANSWERED THE CALL BUT I KEPT ON SAYING HELLO, NO ANSWER.
--- NOTE | 2022-06-07 22:52 | NUR ---
I CALLED AGAIN 2X THE FAMILY ALLAN ISBELL, DID NOT ANSWER THE CALL. I CALLED THE SON STEPHANIE, LEFT A MESSAGE IF WHAT IS THE PLAN FOR THE REMAIN OF THE MOM. I MENTIONED THAT THE MOM CAN ONLY STAY HERE IN THE HOSPITAL FOR 4 HOURS AND IF NO MORTUARY YET, WE WILL REFER TO [facility] AND THEY CAN DO SOME ARRANGEMENT THERE. I LEFT TO [employer] THE NUMBER OF [facility] FOR HIS REFERENCE.
--- NOTE | 2022-06-07 22:59 | NUR ---
EXHIBITS COORDINATOR OFFICE CALLED, ADINA BOSE. SHE STATED THAT NO RELEASE OF THE REMAINS AND NO EXHIBITS COORDINATOR CASE#.
--- NOTE | 2022-06-08 06:03 | NUR ---
PT. PICKED UP BY [facility]. ENDORSED TO THEM PT. EYE GLASSES.
== END 2022-06-07 20:48 | DRG 291 ==
LOC: MED 20:15 → MTU 06-02 04:17 → MIC 06-07 19:15
PROVIDERS: ADMIT Family Medicine; ATTEND Family Medicine
PROC: 0BH17EZ Insertion of Endotracheal Airway into Trachea, Via Natural or Artificial Opening (ICD-10-PCS; principal; 2022-06-07)
PROC: 5A1935Z Respiratory Ventilation, Less than 24 Consecutive Hours (ICD-10-PCS; 2022-06-07)
DX: I11.0 Hypertensive heart disease with heart failure (principal); I50.43 Acute on chronic combined systolic (congestive) and diastolic (congestive) heart failure; N17.0 Acute kidney failure with tubular necrosis; E87.1 Hypo-osmolality and hyponatremia; E87.2 Acidosis; E87.0 Hyperosmolality and hypernatremia; R13.10 Dysphagia, unspecified; E86.0 Dehydration; F03.90 Unspecified dementia, unspecified severity, without behavioral disturbance, psychotic disturbance, mood disturbance, and anxiety; E87.6 Hypokalemia; E83.39 Other disorders of phosphorus metabolism; I70.0 Atherosclerosis of aorta; E78.00 Pure hypercholesterolemia, unspecified; E83.52 Hypercalcemia; E11.65 Type 2 diabetes mellitus with hyperglycemia; E86.1 Hypovolemia; D69.6 Thrombocytopenia, unspecified; S01.552A Open bite of oral cavity, initial encounter; C02.9 Malignant neoplasm of tongue, unspecified; C10.9 Malignant neoplasm of oropharynx, unspecified; Z20.822 Contact with and (suspected) exposure to COVID-19
CPT/HCPCS: 31500; 36415; 36600; 71045; 80048; 80053; 81003; 82150; 82436; 82570; 82803; 83036; 83605; 83690; 83735; 83880; 84100; 84133; 84436; 84439; 84443; 84479; 85025; 85610; 85730; 87040; 87081; 92526; 92950; 93005; 94002; 96361; 96374; 96375; 97116; 97163-GP; 99285; C9113; J1630; J1885; J2001; J2270; J3480; J3490; J7030; J7070; Q0092